=== PATIENT | female | born 2000 | race Caucasian/White ===

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

== ENCOUNTER 2020-11-23 09:30 | Emergency (ER) | payer MEDICAID ==
--- NOTE | 2020-11-23 09:45 | EDM.PDOC ---
ED HPI GENERAL MEDICAL PROBLEM - General Chief Complaint: ENT Problem Stated Complaint: SWOLLEN TONGUE Time Seen by Provider: 11/23/20 09:35 Source of Information: Reports: Patient, Old Records History Limitations: Reports: No Limitations - History of Present Illness INITIAL COMMENTS - FREE TEXT/NARRATIVE: 20 yo female on multiple psych meds presents with a swollen tongue. She awoke in the night with a painful tongue and then awoke this AM to find it swollen. No hx of the same. No difficulty with breathing. No hives. Last took her hydroxyzine at bedtime last night. 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) - Related Data Allergies Allergy/AdvReac Type Severity Reaction Status Date / Time honey Allergy Hives Uncoded 05/30/18 00:13 Home Meds: Home Meds DULoxetine [Cymbalta] 60 mg PO DAILY 05/30/18 [History] Gabapentin [Neurontin] 300 mg PO TID 05/30/18 [History] Past Medical History - Past Health History Medical/Surgical History: Denies Medical/Surgical History Neurological History: Reports: Seizure Other Neuro History: seizures as a - Past Surgical History HEENT Surgical History: Reports: Adenoidectomy, Tonsillectomy Social & Family History - Family History Family Medical History: No Pertinent Family History - Caffeine Use Caffeine Use: Reports: Energy Drinks, Soda, Tea ED ROS ENT - Review of Systems Review Of Systems: See Below Constitutional: Reports: No Symptoms HEENT: Reports: Other (tongue swelling). Denies: Throat Swelling Respiratory: Reports: No Symptoms. Denies: Shortness of Breath, Wheezing, Cough Cardiovascular: Reports: No Symptoms GI/Abdominal: Reports: No Symptoms Skin: Reports: No Symptoms. Denies: Pruritis, Rash, Urticaria Neurological: Reports: No Symptoms ED EXAM, ENT - Physical Exam Exam: See Below Exam Limited By: No Limitations General Appearance: Alert, WD/WN, No Apparent Distress Eye Exam: Bilateral Eye: Normal Inspection Ears: Normal External Exam, Normal Canal, Hearing Grossly Normal, Normal TMs Nose: Normal Inspection, No Blood Mouth/Throat: Normal Lips, Normal Oropharynx, Tongue Swelling. No: Normal Inspection, Muffled Voice, Pharyngeal Erythema Head: Atraumatic, Normocephalic Neck: Normal Inspection Respiratory/Chest: No Respiratory Distress, Lungs Clear, Normal Breath Sounds, No Accessory Muscle Use Cardiovascular: Regular Rate, Rhythm, No Edema Neurological: Alert, Oriented, CN II-XII Intact, Normal Cognition, No Motor/Sensory Deficits Psychiatric: Normal Affect, Normal Mood Skin: Warm, Dry, Intact, Normal Color, No Rash Course - Orders/Labs/Meds Meds: Medications Discontinued Medications Generic Name Dose Route Start Last Admin Trade Name Freq PRN Reason Stop Dose Admin Dexamethasone 8 mg 11/23/20 09:40 11/23/20 10:01 Dexamethasone 4 Mg Tab PO 11/23/20 09:41 8 mg ONETIME ONE Administration Famotidine 40 mg 11/23/20 09:40 11/23/20 10:01 Famotidine 20 Mg Tab PO 11/23/20 09:41 40 mg ONETIME ONE Administration Hydroxyzine HCl 75 mg 11/23/20 09:39 11/23/20 10:10 Hydroxyzine Hcl 25 Mg Tab PO 11/23/20 09:40 75 mg ONETIME ONE Administration - Re-Assessments/Exams Free Text/Narrative Re-Assessment/Exam: 11/23/20 10:54 tongue now slightly less swollen, will discharge. Departure - Departure Time of Disposition: 10:54 Disposition: Home, Self-Care 01 Condition: Fair Clinical Impression: Tongue swelling - Discharge Information *PRESCRIPTION DRUG MONITORING PROGRAM REVIEWED*: Not Applicable *COPY OF PRESCRIPTION DRUG MONITORING REPORT IN PATIENT SETH: Not Applicable Referrals: Vidhi Ivey PROCESSES CHEMICAL DESIGN ENGINEER [Primary Care Provider] - Forms: ED Department Discharge Additional Instructions: Hold all your medications except for your hydroxyzine which I want you to continue taking at least 50 mg every 6 hrs. Return if you worsen. Call your provider tomorrow to see how and if they would like you to resume your meds.
[2020-11-23] MEDS: Famotidine 20 MG Tab PO ONE (10:01)
[2020-11-23] MEDS: Dexamethasone 4 MG Tab PO ONE (10:01)
[2020-11-23] MEDS: hydrOXYzine HCl 25 MG Tab PO ONE (10:10)
[2020-11-23 11:28] VITALS: BP 123/79; PULSE 99
== END 2020-11-23 11:16 | disposition home or self-care (01) ==
LOC: FB.ED 09:30
DX: K14.8 Other diseases of tongue (principal); Z91.018 Allergy to other foods
CPT/HCPCS: 99283; A9270; J8540

== ENCOUNTER 2021-10-21 22:33 | Emergency (ER) | payer MEDICAID ==
[2021-10-22] MEDS ORDERED: predniSONE 20 MG Tab PO ONE (00:15)
[2021-10-22 02:01] VITALS: BP 128/86; PULSE 114
== END 2021-10-22 00:35 | disposition designated cancer center or children's hospital (05) ==
LOC: FB.ED 22:33
DX: S80.861A Insect bite (nonvenomous), right lower leg, initial encounter (principal); S80.862A Insect bite (nonvenomous), left lower leg, initial encounter; S50.861A Insect bite (nonvenomous) of right forearm, initial encounter; S50.862A Insect bite (nonvenomous) of left forearm, initial encounter; Z91.030 Bee allergy status; Z79.899 Other long term (current) drug therapy; W57.XXXA Bitten or stung by nonvenomous insect and other nonvenomous arthropods, initial encounter
CPT/HCPCS: 99282; J7512

== ENCOUNTER 2022-07-08 23:33 | Emergency (ER) | payer MEDICAID ==
[2022-07-09 00:28] LABS: BASOPHILS PERCENT AUTO 0.4 % (0.2-1.5); EOSINOPHILS ABSOLUTE AUTO 0.2 x10-3/uL (0.0-0.8); EOSINOPHILS PERCENT AUTO 2.3 % (0.6-8.1); HEMATOCRIT 43.8 % (34.2-48.2); HEMOGLOBIN 14.6 g/dL (11.4-15.5); LYMPHOCYTES ABSOLUTE AUTO 2.3 x10-3/uL (1.0-4.4); LYMPHOCYTES PERCENT AUTO 32.2 % (18.4-52.1); MEAN CORPUSCULAR HEMOGLOBIN 29.6 pg (23.9-33.9); MEAN CORPUSCULAR HGB CONC 33.4 g/dL (31.9-34.8); MEAN CORPUSCULAR VOLUME 88.6 fL (76.7-100.5); MEAN PLATELET VOLUME 8.8 fL (7.1-12.4); MONOCYTES ABSOLUTE AUTO 0.6 x10-3/uL (0.3-1.0); MONOCYTES PERCENT AUTO 7.9 % (4.4-15.7); NEUTROPHILS PERCENT AUTO 57.2 % (30.8-76.2); PLATELET COUNT,PLT 351 x10(3)uL (151-488); RED BLOOD CELL COUNT 4.94 x10(6)uL (3.60-5.20); RED CELL DISTRIBUTION WIDTH 13.5 % (12.3-16.5)
[2022-07-09 00:31] LABS: BLOOD UREA NITROGEN,BUN 6 mg/dL (7-18); CALCIUM 9.5 mg/dL (8.6-10.2); CARBON DIOXIDE,CO2 26 mmol/L (21-32); CHLORIDE,CL 104 mmol/L (100-110); ESTIMATED GFR 82 mL/min (>60); GLUCOSE RANDOM 104 mg/dL (80-116); POTASSIUM,K 3.6 mmol/L (3.5-5.3); SODIUM,NA 140 mmol/L (135-145)
[2022-07-09 00:37] LABS: ALANINE AMINOTRANSFERASE,ALT 18 U/L (12-36); ALBUMIN 3.9 g/dL (3.5-5.2); ALKALINE PHOSPHATASE 97 IU/L (56-112); ASPARTATE AMNIOTRANSFERASE,AST 17 IU/L (5-25); BILIRUBIN TOTAL 0.4 mg/dL (0.1-1.3)
[2022-07-09] MEDS ORDERED: Ondansetron 4 MG/2 ML SDV IVPUSH ONE (00:39)
[2022-07-09] MEDS ORDERED: Ketorolac 30 MG/ML SDV IVPUSH ONE (00:39)
[2022-07-09] MEDS ORDERED: Sodium Chloride 0.9% 1,000 ML IV SCH (00:45)
[2022-07-09] MEDS ORDERED: Iopamidol 755 Mg/ML 100 ML Bottle IV ONE (01:27)
[2022-07-09 01:57] VITALS: BP 122/78; PULSE 84
== END 2022-07-09 01:56 | disposition home or self-care (01) ==
LOC: FB.ED 23:33
DX: R11.10 Vomiting, unspecified (principal); R10.10 Upper abdominal pain, unspecified; Z88.0 Allergy status to penicillin; Z88.8 Allergy status to other drugs, medicaments and biological substances; Z91.018 Allergy to other foods
CPT/HCPCS: 36415; 74177; 80053; 84702; 85025; 96361; 96374; 96375; 99283; 99284-25; J1885; J2405; J7030; Q9967

== ENCOUNTER 2022-09-25 17:11 | Emergency (ER) | payer MEDICAID ==
[2022-09-25] MEDS ORDERED: ClonazePAM 1 MG Tab PO STA (19:03)
[2022-09-25] MEDS ORDERED: Ketorolac 30 MG/ML SDV IM STA (19:24)
[2022-09-25 19:40] VITALS: BP 133/86; PULSE 86
== END 2022-09-25 19:33 | disposition home or self-care (01) ==
LOC: FB.ED 17:11
DX: F41.1 Generalized anxiety disorder (principal); J01.90 Acute sinusitis, unspecified; M25.561 Pain in right knee; Z88.0 Allergy status to penicillin; Z88.8 Allergy status to other drugs, medicaments and biological substances; Z91.048 Other nonmedicinal substance allergy status
CPT/HCPCS: 71045; 96372; 99284; A9270; J1885

== ENCOUNTER 2023-04-20 15:55 | Emergency (ER) | payer MEDICAID ==
[2023-04-20 16:53] LABS: BILIRUBIN,URINE NEGATIVE (NEGATIVE); GLUCOSE,URINE NORMAL (NORMAL); KETONES,URINE 50 mg/dL (NEGATIVE); LEUKOCYTE ESTERASE,URINE NEGATIVE (NEGATIVE); NITRITE,URINE NEGATIVE (NEGATIVE); OCCULT BLOOD,URINE NEGATIVE (NEGATIVE); PROTEIN,URINE NEGATIVE (NEGATIVE); UROBILINOGEN,URINE NORMAL (NEGATIVE)
[2023-04-20 16:57] LABS: APPEARANCE,URINE CLEAR (CLEAR); COLOR,URINE YELLOW (YELLOW); RBC,URINE 0-5 (0-5); WBC,URINE 0-5 (0-5)
[2023-04-20 16:58] LABS: BACTERIA,URINE RARE (NS); SQUAMOUS EPITHELIAL CELLS,UR OCCASIONAL (NS,R,O)
[2023-04-20 16:59] LABS: AMPHETAMINES SCREEN, URINE NEGATIVE (NEGATIVE); BARBITURATE SCREEN,URINE NEGATIVE (NEGATIVE); BENZODIAZEPINES SCREEN,URINE NEGATIVE (NEGATIVE); BUPRENORPHINE SCREEN,URINE NEGATIVE (NEGATIVE); METHADONE SCREEN, URINE NEGATIVE (NEGATIVE); METHAMPHETAMINE SCREEN, URINE NEGATIVE (NEGATIVE); OXYCODONE SCREEN,URINE NEGATIVE (NEGATIVE); THC SCREEN,URINE POSITIVE (NEGATIVE)
[2023-04-20 17:07] LABS: BLOOD UREA NITROGEN,BUN 8 mg/dL (7-18); CALCIUM 9.3 mg/dL (8.6-10.2); CARBON DIOXIDE,CO2 28 mmol/L (21-32); CHLORIDE,CL 102 mmol/L (100-110); CREATININE 0.8 mg/dL (0.55-1.02); EST CRCL DRUG DOSING (CG) 98.41 mL/min; ESTIMATED GFR 106 mL/min (>60); GLUCOSE RANDOM 86 mg/dL (80-116); POTASSIUM,K 3.8 mmol/L (3.5-5.3); SODIUM,NA 140 mmol/L (135-145)
[2023-04-20 17:08] LABS: BASOPHILS PERCENT AUTO 0.3 % (0.2-1.5); EOSINOPHILS ABSOLUTE AUTO 0.1 x10-3/uL (0.0-0.8); EOSINOPHILS PERCENT AUTO 0.9 % (0.6-8.1); HEMATOCRIT 42.1 % (34.2-48.2); HEMOGLOBIN 14.1 g/dL (11.4-15.5); LYMPHOCYTES ABSOLUTE AUTO 1.8 x10-3/uL (1.0-4.4); LYMPHOCYTES PERCENT AUTO 20.1 % (18.4-52.1); MEAN CORPUSCULAR HEMOGLOBIN 30.7 pg (23.9-33.9); MEAN CORPUSCULAR HGB CONC 33.4 g/dL (31.9-34.8); MEAN CORPUSCULAR VOLUME 91.8 fL (76.7-100.5); MONOCYTES ABSOLUTE AUTO 0.5 x10-3/uL (0.3-1.0); NEUTROPHILS ABSOLUTE AUTO 6.7 x10-3/uL (1.5-6.3); NEUTROPHILS PERCENT AUTO 73.7 % (30.8-76.2); PLATELET COUNT,PLT 333 x10(3)uL (151-488); RED BLOOD CELL COUNT 4.58 x10(6)uL (3.60-5.20); RED CELL DISTRIBUTION WIDTH 13.3 % (12.3-16.5); WHITE BLOOD CELL COUNT,WBC 9.1 x10-3/uL (3.0-10.3)
[2023-04-20 17:14] LABS: A/G RATIO 1.1; ALANINE AMINOTRANSFERASE,ALT 20 U/L (12-36); ALBUMIN 3.8 g/dL (3.5-5.2); ALKALINE PHOSPHATASE 94 IU/L (56-112); ASPARTATE AMNIOTRANSFERASE,AST 14 IU/L (5-25); BILIRUBIN TOTAL 0.6 mg/dL (0.1-1.3); PROTEIN TOTAL,TP 7.3 g/dL (6.0-8.0)
[2023-04-20 17:21] LABS: SALICYLATE < 2.8 mg/dL (<2.8)
[2023-04-20 17:23] LABS: TSH ULTRASENSITIVE 0.94 IU/mL (0.36-3.74)
[2023-04-20 17:30] LABS: ACETAMINOPHEN < 2 ug/mL (<2)
[2023-04-20 17:53] LABS: ETHANOL BLOOD MEDICAL < 0.03 % (<0.03)
[2023-04-20] MEDS: LORazepam 2 MG/ML SDV IM STA (19:32)
[2023-04-20] MEDS: Ondansetron 4 MG Tab.DIS PO STA (20:04)
[2023-04-20 20:22] VITALS: BP 129/80; PULSE 101
[2023-04-23 13:16] LABS: THYROXINE FREE 1.2 ng/dL (0.9-1.7)
== END 2023-04-20 20:21 | disposition home or self-care (01) ==
LOC: FB.ED 15:55
DX: R45.851 Suicidal ideations (principal); F41.8 Other specified anxiety disorders; F17.210 Nicotine dependence, cigarettes, uncomplicated; Z88.0 Allergy status to penicillin; Z91.013 Allergy to seafood; Z91.018 Allergy to other foods; Z88.8 Allergy status to other drugs, medicaments and biological substances; Z79.899 Other long term (current) drug therapy; Z86.16 Personal history of COVID-19
CPT/HCPCS: 36415; 80053; 80143; 80179; 80307; 81001; 81025; 84439; 84443; 85025; 96372; 99284; J2060; Q0162